=== PATIENT | female | born 1960 | race Caucasian/White ===

== ENCOUNTER 2023-09-16 08:59 | Outpatient (RCR) | payer OTHER, SELFPAY | END 2023-09-16 23:59 | disposition home or self-care (01) | LOC: RPT 08:59 | PROVIDERS: ATTENDING PHYSICIAN Family Medicine | DX: M79.18 Myalgia, other site (principal); Z73.6 Limitation of activities due to disability; R26.2 Difficulty in walking, not elsewhere classified | CPT/HCPCS: 97110; 97162 ==

== ENCOUNTER 2023-10-07 10:05 | Outpatient (RCR) | payer OTHER, SELFPAY | END 2023-10-07 23:59 | disposition home or self-care (01) | LOC: RPT 10:05 | PROVIDERS: ATTENDING PHYSICIAN Family Medicine | DX: M79.18 Myalgia, other site (principal); Z73.6 Limitation of activities due to disability; R26.2 Difficulty in walking, not elsewhere classified; M54.50 Low back pain, unspecified; M79.605 Pain in left leg | CPT/HCPCS: 97010; 97110; 97112; 97140 ==

== ENCOUNTER 2023-11-04 09:09 | Outpatient (RCR) | payer OTHER, SELFPAY | END 2023-11-04 23:59 | disposition home or self-care (01) | LOC: RPT 09:09 | PROVIDERS: ATTENDING PHYSICIAN Family Medicine | DX: M79.18 Myalgia, other site (principal); Z73.6 Limitation of activities due to disability | CPT/HCPCS: 97110 ==

== ENCOUNTER 2024-08-02 02:01 | Emergency (ER) | payer OTHER, SELFPAY ==
[2024-08-02 02:11] VITALS: BP 134/74
[2024-08-02 02:40] LABS: % Basophils 0.6 % (0-2); % Eosinophils 4.9 % (0-6); % Immature Granulocytes 0.1 % (0-0.5); % Lymphocytes 31.6 % (20.5-51.1); % Monocytes 7.1 % (1.7-9.3); % Neutrophils 55.7 % (42.2-75.2); ALT (SGPT) 33 U/L (0-35); AST (SGOT) 109 U/L (14-36); Absolute Eosinophils 0.3 10^3/uL (0-0.7); Absolute Lymphocytes 2.2 10^3/uL (1.2-3.4); Absolute Monocytes 0.5 10^3/uL (0.1-0.6); Absolute Neutrophils 3.9 10^3/uL (1.4-6.5); Albumin 4.6 g/dl (3.5-5.0); Alkaline Phosphatase 86 U/L (38-126); Calcium 9.2 mg/dl (8.4-10.2); Carbon Dioxide 28 mmol/L (22-30); Chloride 102 mmol/L (98-107); Glucose 102 mg/dl (70-99); Hematocrit 36.2 % (37.0-47.0); Hemoglobin 12.3 g/dL (12.0-16.0); Mean Corpuscular Hgb 31.6 pg (27.0-31.0); Mean Corpuscular Volume 93.1 fL (81.0-99.0); Mean Platelet Volume 11.5 fL (7.4-10.4); Nucleated Red Blood Cells % 0 %; Platelet Count 189 10^3/uL (130-400); Potassium 3.8 mmol/L (3.5-5.1); Red Blood Cell Count 3.89 10^6/uL (4.20-5.40); Red Cell Dist. Width 12.6 % (11.5-14.5); Sodium 140 mmol/L (135-145); Total Bilirubin 0.7 mg/dl (0.2-1.3); Total Protein 7.4 g/dl (6.3-8.2); White Blood Cell Count 6.9 10^3/uL (4.8-10.8); eGFR > 60.00
[2024-08-02 02:44] LABS: COVID-19 Antigen Negative (Negative)
[2024-08-02 02:48] LABS: Blood Urea Nitrogen 12 mg/dl (7-17)
[2024-08-02 02:51] LABS: Troponin I < 0.012 ng/ml
[2024-08-02 03:36] VITALS: BP 150/84
[2024-08-02 04:00] VITALS: BP 141/77
--- NOTE | 2024-08-02 04:16 | ED.GENMED ---
Addendum entered and electronically signed by Zane Bailon DO 08/02/24 06:08:
Update patient feeling better, chest pain hotline notified, will discharge with Tessalon and albuterol, vision report did show capsular rupture by report, patient asymptomatic told her to discuss this with her surgeon given copy the report and the
CAT scan
Original Note:
History of Present Illness
General
Chief Complaint: Breathing Problem
Source: patient and spouse
Exam Limitations: none
Time Seen by Provider: 08/02/24 03:36
Nursing documentation reviewed up to this point in time: agreed with
History of Present Illness
History of Present Illness:
64-year-old female presents with cough and shortness of breath, onset a day or so ago no fever chills no hemoptysis, recently had some pain in her chest into her jaw and back saw her PCP told it could be reflux started on a PPI, told to follow-up
with cardiology, about 10 years ago she had some chest pain had a workup from cardiology, has not seen them since, PCP did state if her symptoms were worse or change come to the ER, here denies any chest pain does have a cough, no history of DVT PE
Past History
Past History
ED Past Medical History: Hypercholesterolemia
ED Past Surgical History: Other (Spinal fusion)
Social History
Tobacco: Non-smoker
Alcohol: Occasional
Drug: None
Personal:
Living: with family
Employment: Employed
Family History
Family History: CAD
Review of Systems
Review of Systems
All Other Systems: Not applicable
Constitutional: Denies fever or fatigue
Respiratory: Reports cough and trouble breathing
Cardiac: Denies chest pain or palpitations
ABD/GI: Reports no symptoms
: Reports no symptoms
Musculoskeletal: Reports no symptoms
Skin: Reports no symptoms
Neurological: Reports no symptoms
Phy Exam
Physical Exam
Physical Exam:
Physical Exam
General: 64 female coughing occasion
Neck: No jaundice
Heart: s1/s2 regular rate and rhythm, no murmur. equal radial pulses.
Lungs: No wheezing
Abdomen: Nontender
Neuro: alert and oriented. no focal neurological deficits
Skin: no rash
Psychiatric: well kept. interactive and cooperative
Extremities: no edema. no calf tenderness.
Scores
Heart Failure Risk
Heart Failure Risk Score: Not Applicable
Course
Orders/Labs/Results
Orders:
Orders
08/02/24 02:02
Electrocardiogram (*1) Urgent
Reason for Study: Shortness of Breath
EKG- Treatment ONCE
08/02/24 02:21
COVID-19 Antigen Urgent
Source: Nasal Swab
Complete Blood Count/With Diff Urgent
Comprehensive Metabolic Panel Urgent
Troponin I Urgent
Influenza A+B Rapid Molecular Urgent
BINU Source: Nasal Swab
Specimen Description:
08/02/24 03:03
Chest [CR Chest - 2 Views ] Urgent
Comment:
Reason For Exam: cough, SOB
08/02/24 04:10
Benzonatate [Tessalon Perles] 200 mg PO NOW STA
Ipratropium/Albuterol Sulfate [Duoneb] 3 ml INH R NOW STA
08/02/24 04:24
D-Dimer Urgent
08/02/24 04:52
CT Chest PE Study Urgent
Comment:
Reason For Exam: Chest pain D-dimer
Abnormal Lab Results
08/02/24 08/02/24
02:21 04:24
RBC 3.89 L 10^6/uL
(4.20-5.40)
Hct 36.2 L %
(37.0-47.0)
MCH 31.6 H pg
(27.0-31.0)
MPV 11.5 H fL
(7.4-10.4)
D-Dimer 0.53 H ug/mlFEU
(0.00-0.50)
Glucose 102 H mg/dl
(70-99)
AST 109 H U/L
(14-36)
08/02/24 02:21
08/02/24 02:21
Vital Signs
Initial and Last Documented VS:
Initial Vital Signs
Temp Pulse Resp BP Pulse Ox
98.4 F 78 18 134/74 98
08/02/24 02:11 08/02/24 02:11 08/02/24 02:11 08/02/24 02:11 08/02/24 02:11
Last Documented Vital Signs
Temp Pulse Resp BP Pulse Ox
98.4 F 78 18 141/77 97
08/02/24 02:11 08/02/24 02:11 08/02/24 02:11 08/02/24 04:00 08/02/24 04:45
MDM/Problems Addressed
Differential Diagnosis Includes:
URI bronchitis PE pneumonia pneumothorax less likely ACS
MDM/Problems Addressed:
Cough shortness of
*Radiology
Radiology exam reviewed: radiology read reviewed
*Pulse Oximetry
Patient hypoxic: no
*EKG
Interpreted by ED Provider?: Yes
Interpretation: normal
Comparison EKG: no comparison EKG present
Heart Rate: 78
Rate: normal
Rhythm: sinus
Ischemia: no ischemia
*[employer] Interpretation
Rate: normal
Interpretation: normal
Heart Rate: 78
Rhythm: sinus
*Critical Care Note
Total Time (30-74mins, 75-104mins- exclusive of procedures): Not Applicable
Update Note
Update Note:
Update, labs no chest x-ray D-dimer noted, will proceed with CTA
Patient report reviewed no PE
ED Attending Note
-
Portions of this chart may have been created with voice recognition software.� Occasional wrong word or��sound alike� substitutions may have occurred due to the inherent limitations of voice recognition software.
Discharge Plan
Departure
Patient Disposition: Home (Routine Discharge)
Date of Disposition: 08/02/24
Time of Disposition: 05:58
Patient with high blood pressure during this ER visit?: No
Condition: Good
Discharge Problem:
Cough
Instructions: Cough in adults, Chest Pain CBC Follow Up
Prescriptions:
New
benzonatate 200 mg capsule
200 mg PO BID PRN (Reason: Cough) Qty: 20 0RF
albuterol sulfate [Ventolin HFA] 90 mcg/actuation HFA aerosol inhaler
2 puff inhalation Q6H PRN (Reason: shortness of breath or wheezing) Qty: 8.5 1RF
No Action
fexofenadine-pseudoephedrine 120 MG/60 MG tablet extended release 12 hr
1 tab PO PRN (Reason: allergies)
fluticasone propionate 16 GRAM spray,suspension
2 spray intranasal DAILY
Metamucil Fiber Singles 1 PACKET powder in packet
1 packet PO DAILY Qty: 10 0RF
Referrals:
Jazmyne Aburto PA-C [Family Provider] -
Interventions
Interventions:
*Risk Screen - Suicide Last Done: 08/02/24 02:11
*General Assessment Last Done: 08/02/24 02:11
*Neglect/Abuse Screening Last Done: 08/02/24 02:11
ED- Fall Risk Assessment Last Done: 08/02/24 03:35
*ED COVID-19 Vaccine History Last Done: 08/02/24 05:20
ED- Cardiac Assessment Last Done: 08/02/24 03:35
ED- Pulmonary Assessment Last Done: 08/02/24 03:35
Discharge Date and Time
Print Language: ROMANIAN
[2024-08-02] MEDS: TESSALON PERLES 200 MG PO (04:24)
[2024-08-02] MEDS: DUONEB 3 ML INH (04:25)
[2024-08-02 04:47] LABS: D-Dimer 0.53 ug/mlFEU (0.00-0.50)
[2024-08-02 06:29] VITALS: BP 138/72
== END 2024-08-02 06:20 | disposition home or self-care (01) ==
LOC: EMR 02:01
PROVIDERS: EMERGENCY PHYSICIAN Emergency Medicine; FAMILY PHYSICIAN Physician Assistant Medical
DX: R05.9 Cough, unspecified (principal); Z11.52 Encounter for screening for COVID-19
CPT/HCPCS: 99285; 94640; 71046; 71275; 80053; 84484; 85025; 85379; 87502; 87811; 93005; Q9967

== ENCOUNTER → 2024-08-17 14:00 | Outpatient (REF) | payer OTHER, SELFPAY | LOC: WDC 14:00 | PROVIDERS: ATTENDING PHYSICIAN Surgery; FAMILY PHYSICIAN Family Medicine | DX: T85.49XA Other mechanical complication of breast prosthesis and implant, initial encounter (principal) | CPT/HCPCS: 76642 ==